=== PATIENT | female | born 2000 ===

== ENCOUNTER 2021-09-12 21:52 | Emergency (ER) ==
[~2021-09-12] VITALS: Ht 157.5 cm; Wt 73.9 kg
[2021-09-12] MEDS ORDERED: DIPH25CA32 PO (22:04)
== END 2021-09-13 01:28 | disposition left against medical advice (07) ==
LOC: M ED 21:52
DX: Z53.29 Procedure and treatment not carried out because of patient's decision for other reasons (principal)